=== PATIENT | male | born 1995 | race Caucasian/White ===

== ENCOUNTER 2016-03-21 07:50 | Emergency (ER) | payer BC ==
[~2016-03-21] VITALS: Ht 175.3 cm; Wt 104.5 kg
[~2016-03-21 07:50] MED LIST: NO HOME MEDICATIONS
[2016-03-21 08:38] LABS: BASO % 0.3 % (0.0-2.0); EOS % 0.1 % (0-4.0); GRAN # 9.7 (1.4-6.5); GRAN % 81.9 % (42.2-75.2); HEMOGLOBIN 15.2 g/dl (12.5-16.1); LYMPH # 1.5 (1.2-3.4); LYMPH % 12.2 % (20.0-51.0); MEAN CELL VOLUME 86 fl (80.0-95.0); MEAN CORPUSCULAR HEMOGLOBIN 31 pg (26.0-32.0); MEAN CORPUSCULAR HGB CONC 36 g/dl (33.0-37.0); MEAN PLATELET VOLUME 10.6 fl (7.4-10.4); MONO # 0.6 (0.1-0.6); MONO % 5.2 % (1.7-9.3); PLATELET COUNT 220 K/mm3 (130-400); REDCELL DISTRIBUTION WIDTH-CV 11.7 % (11.5-14.5); WHITE BLOOD COUNT 11.9 K/mm3 (4.8-10.8)
[2016-03-21 09:03] LABS: ALANINE AMINOTRANSFERASE 39 U/L (21-72); ALBUMIN 4.3 gm/dL (3.5-5.0); ALKALINE PHOSPHATASE 53 U/L (50-136); ANION GAP 12 mmol/L (7-16); BILIRUBIN,TOTAL 0.6 mg/dL (0.0-1.0); BLOOD UREA NITROGEN 9 mg/dL (9-20); CALCIUM 9.2 mg/dL (8.4-10.2); CARBON DIOXIDE 26 mmol/L (22-30); CHLORIDE 103 mmol/L (98-107); CREATININE, serum 0.94 mg/dL (0.66-1.25); GLUCOSE 91 mg/dL (74-106); POTASSIUM 3.9 mmol/L (3.4-5.0); SODIUM 140 mmol/L (137-145); TOTAL PROTEIN 7.3 gm/dL (6.4-8.2)
[2016-03-21 09:06] LABS: C-REACTIVE PROTEIN < 0.5 mg/dL (0.0-0.9)
[2016-03-21 10:00] LABS: PH 6 (5-8); SQUAMOUS EPITHELIAL 0-2 /hpf; URINE APPEARANCE Clear; URINE BACTERIA None Seen /hpf; URINE BILIRUBIN Negative (NEGATIVE); URINE BLOOD Negative (NEGATIVE); URINE COLOR Yellow; URINE GLUCOSE Negative (NEGATIVE); URINE KETONE Negative (NEGATIVE); URINE RBC 0-2 /hpf; URINE UROBILINOGEN Negative (NEGATIVE); URINE WBC 0-2 /hpf
[2016-03-21 17:34] VITALS: BP 141/56; PULSE 117; TEMP 99.2
== END 2016-03-21 12:05 | disposition other institution (70) ==
LOC: COL.ER 07:50
PROVIDERS: Physician Assistant
DX: Y99.9 Unspecified external cause status (principal)
CPT/HCPCS: J1885; J2405; J7030; Q9967

== ENCOUNTER 2016-03-21 11:06 | Day surgery (SDC) | payer BC ==
[~2016-03-21] VITALS: Ht 175.3 cm; Wt 106.2 kg
[2016-03-21 13:28] VITALS: BP 149/89; PULSE 97; TEMP 98.9
[2016-03-21 17:30] VITALS: BP 157/54; PULSE 103; TEMP 98
[2016-03-21 17:45] VITALS: BP 148/556; PULSE 102; TEMP 98
[2016-03-21 18:00] VITALS: BP 155/62; PULSE 100; TEMP 98
== END 2016-03-21 20:30 | disposition home or self-care (01) ==
LOC: SDCO 11:06 → SURG 17:15 → SDCO 20:30
DX: K35.80 Unspecified acute appendicitis (principal); Z87.891 Personal history of nicotine dependence
CPT/HCPCS: OP; J0694; J1100; J1885; J2270; J2405; J2704; J2710; J2765; J3010; J7030; J7120; Q9967

== ENCOUNTER → 2016-04-16 | Outpatient (REF) | LOC: WSOH 08:28 | DX: Z02.4 Encounter for examination for driving license (principal) ==